=== PATIENT | female | born 1980 | race African-American/Black ===

== ENCOUNTER 2020-10-22 16:49 | Emergency (ER) | payer OTHER | END 2020-10-22 19:11 | disposition home or self-care (01) | LOC: ERS 16:49 | DX: L03.012 Cellulitis of left finger (principal) ==

== ENCOUNTER 2021-08-21 16:27 | Emergency (ER) | payer OTHER ==
[2021-08-22 15:40] LABS: SARS-CoV-2 PCR by NAA Not Detected (NotDetected)
== END 2021-08-21 17:32 | disposition home or self-care (01) ==
LOC: ERS 16:27
DX: Z20.822 Contact with and (suspected) exposure to COVID-19 (principal)
CPT/HCPCS: 99283; U0003; U0005

== ENCOUNTER 2022-05-17 17:54 | Emergency (ER) | payer OTHER | END 2022-05-17 19:25 | disposition home or self-care (01) | LOC: ERS 17:54 | DX: M77.32 Calcaneal spur, left foot (principal); I10 Essential (primary) hypertension; Z79.899 Other long term (current) drug therapy ==

== ENCOUNTER 2022-07-03 09:59 | Emergency (ER) | payer OTHER | END 2022-07-03 10:35 | disposition home or self-care (01) | LOC: ERS 09:59 | DX: B02.9 Zoster without complications (principal); I10 Essential (primary) hypertension; Z79.899 Other long term (current) drug therapy ==

== ENCOUNTER 2023-09-11 00:38 | Emergency (ER) | payer OTHER, SELFPAY ==
[2023-09-11] MEDS ORDERED: Acetaminophen 500 MG TAB ONE (01:04)
[2023-09-11 07:08] LABS: SARS-CoV-2 NAA Rapid Test Not Detected (NotDetected)
== END 2023-09-11 02:30 | disposition home or self-care (01) ==
LOC: ERS 00:38
DX: J20.9 Acute bronchitis, unspecified (principal); I51.7 Cardiomegaly; M79.641 Pain in right hand; I10 Essential (primary) hypertension; E66.01 Morbid (severe) obesity due to excess calories; Z79.899 Other long term (current) drug therapy
CPT/HCPCS: 71045

== ENCOUNTER 2023-10-01 16:37 | Emergency (ER) | payer SELFPAY ==
[2023-10-01 17:50] LABS: Influenza A by NAA DETECTED (NotDetected); SARS-CoV-2 NAA Rapid Test Not Detected (NotDetected)
[2023-10-01] MEDS ORDERED: Acetaminophen 500 MG TAB ONE (18:22)
[2023-10-01] MEDS ORDERED: Ketorolac Tromethamine 30 MG (1 mL) VIAL ONE (18:22)
== END 2023-10-01 19:11 | disposition home or self-care (01) ==
LOC: ERS 16:37
DX: J10.1 Influenza due to other identified influenza virus with other respiratory manifestations (principal); I10 Essential (primary) hypertension; E11.9 Type 2 diabetes mellitus without complications; K91.86 Retained cholelithiasis following cholecystectomy; Z79.899 Other long term (current) drug therapy; Z79.84 Long term (current) use of oral hypoglycemic drugs
CPT/HCPCS: 71045; 93005; 96374; J1885